=== PATIENT | female | born 1995 | race Caucasian/White ===

== ENCOUNTER 2020-12-01 12:19 | Outpatient (REF) | payer OTHER, SELFPAY ==
[2020-12-01 13:25] LABS: HCG Quantitative 24 mIU/mL
== END 2020-12-01 12:20 | disposition home or self-care (01) ==
LOC: HO.LAB 12:19
PROVIDERS: Visit Provider Advanced Practice Midwife
DX: O20.0 Threatened abortion (principal)
CPT/HCPCS: 36415; 84702

== ENCOUNTER 2020-12-03 10:39 | Outpatient (REF) | payer OTHER, SELFPAY ==
[2020-12-03 12:22] LABS: HCG Quantitative 31 mIU/mL
== END 2020-12-03 10:40 | disposition home or self-care (01) ==
LOC: HO.LAB 10:39
PROVIDERS: Visit Provider Advanced Practice Midwife
DX: O20.0 Threatened abortion (principal)
CPT/HCPCS: 36415; 84702

== ENCOUNTER 2020-12-05 10:19 | Outpatient (REF) | payer OTHER, SELFPAY ==
[2020-12-05 11:23] LABS: HCG Quantitative 26 mIU/mL
== END 2020-12-05 10:20 | disposition home or self-care (01) ==
LOC: HO.LAB 10:19
PROVIDERS: PCP Internal Medicine; Visit Provider Advanced Practice Midwife
DX: O20.0 Threatened abortion (principal)
CPT/HCPCS: 36415; 84702

== ENCOUNTER 2020-12-15 10:38 | Outpatient (REF) | payer OTHER, SELFPAY ==
[2020-12-15 12:19] LABS: HCG Quantitative 10 mIU/mL
== END 2020-12-15 10:39 | disposition home or self-care (01) ==
LOC: HO.LAB 10:38
PROVIDERS: PCP Internal Medicine; Visit Provider Advanced Practice Midwife
DX: O20.0 Threatened abortion (principal); Z3A.00 Weeks of gestation of pregnancy not specified
CPT/HCPCS: 36415; 84702

== ENCOUNTER 2020-12-25 12:23 | Outpatient (REF) | payer OTHER, SELFPAY ==
[2020-12-25 13:34] LABS: HCG Quantitative < 2 mIU/mL
== END 2020-12-25 12:24 | disposition home or self-care (01) ==
LOC: HO.LAB 12:23
PROVIDERS: PCP Internal Medicine; Visit Provider Advanced Practice Midwife
DX: O02.1 Missed abortion (principal)
CPT/HCPCS: 36415; 84702

== ENCOUNTER → 2021-01-09 08:39 | Outpatient (BNVA) | payer OTHER, SELFPAY | PROVIDERS: PCP Internal Medicine; Visit Provider Advanced Practice Midwife ==

== ENCOUNTER 2021-02-03 10:22 | Outpatient (REF) | payer OTHER, SELFPAY ==
[2021-02-03 12:41] LABS: HCG Quantitative 1112 mIU/mL
== END 2021-02-03 10:23 | disposition home or self-care (01) ==
LOC: HO.LAB 10:22
PROVIDERS: PCP Internal Medicine; Visit Provider Obstetrics & Gynecology
DX: O99.519 Diseases of the respiratory system complicating pregnancy, unspecified trimester (principal); J45.909 Unspecified asthma, uncomplicated
CPT/HCPCS: 36415; 81025; 84702; 99212

== ENCOUNTER 2021-02-05 10:33 | Outpatient (REF) | payer OTHER, SELFPAY ==
[2021-02-05 11:54] LABS: HCG Quantitative 2481 mIU/mL; Thyroid Stimulating Hormone 0.23 uIU/mL (0.32-4.0)
== END 2021-02-05 10:34 | disposition home or self-care (01) ==
LOC: HO.LAB 10:33
PROVIDERS: PCP Internal Medicine; Visit Provider Obstetrics & Gynecology
DX: O26.899 Other specified pregnancy related conditions, unspecified trimester (principal); E05.00 Thyrotoxicosis with diffuse goiter without thyrotoxic crisis or storm
CPT/HCPCS: 36415; 84443; 84702; 99212

== ENCOUNTER 2021-02-06 09:57 | Outpatient (REF) | payer OTHER, SELFPAY ==
--- NOTE | ~2021-02-06 | US_ITS ---
EXAMINATION: OBSTETRICAL ULTRASOUND, FIRST TRIMESTER HISTORY: 25-year-old with the unknown LMP History of missed AB 2 months earlier LMP: N/A COMPARISON: 08/23/2019 TECHNIQUE: Real time transabdominal imaging with color and M-mode Doppler. Transvaginal ultrasound was performed using an endovaginal probe. FINDINGS: An intrauterine gestational sac with a mean sac diameter of 7.5 mm consistent with 5 weeks and 3 days is noted. No embryonic pole or yoke sac are seen. This can be consistent with the given gestational age. Both maternal ovaries are seen and appear normal. No free fluid in the cul-de-sac. GESTATIONAL AGE: 1. GA from LMP: N/A wks 2. GA from AUA: 5.3 wks ESTIMATED DATE OF DELIVERY: 1. AARON from LMP: N/A 2. AARON from AUA: 09/20/2021 US/US OB <= 14 weeks fetus IMPRESSION: 1. A single intrauterine gestational sac with mean sac diameter consistent with 5 weeks 3 days. 2. No visible yolk sac or embryonic pole. 3. Normal ovaries Today's finding can be consistent with early . However blighted ovum or missed AB cannot be ruled out. Clinical correlation suggested. Thank you very much for this referral. This note was generated with a voice recognition program. Please excuse any errors which may have been overlooked during my review of this note. Sometimes these errors may affect the content or meaning of a given sentence.
--- NOTE | ~2021-02-06 | US_ITS ---
EXAMINATION: OBSTETRICAL ULTRASOUND, FIRST TRIMESTER HISTORY: 25-year-old with the unknown LMP History of missed AB 2 months earlier LMP: N/A COMPARISON: 08/23/2019 TECHNIQUE: Real time transabdominal imaging with color and M-mode Doppler. Transvaginal ultrasound was performed using an endovaginal probe. FINDINGS: An intrauterine gestational sac with a mean sac diameter of 7.5 mm consistent with 5 weeks and 3 days is noted. No embryonic pole or yoke sac are seen. This can be consistent with the given gestational age. Both maternal ovaries are seen and appear normal. No free fluid in the cul-de-sac. GESTATIONAL AGE: 1. GA from LMP: N/A wks 2. GA from AUA: 5.3 wks ESTIMATED DATE OF DELIVERY: 1. AARON from LMP: N/A 2. AARON from AUA: 09/20/2021 US/US OB transvaginal IMPRESSION: 1. A single intrauterine gestational sac with mean sac diameter consistent with 5 weeks 3 days. 2. No visible yolk sac or embryonic pole. 3. Normal ovaries Today's finding can be consistent with early . However blighted ovum or missed AB cannot be ruled out. Clinical correlation suggested. Thank you very much for this referral. This note was generated with a voice recognition program. Please excuse any errors which may have been overlooked during my review of this note. Sometimes these errors may affect the content or meaning of a given sentence.
[2021-02-06 12:36] LABS: Free T4 (Free Thyroxine) 0.89 ng/dL (0.71-1.85)
[2021-02-07 07:52] LABS: Triiodothyronine T3 Free 3.2 pg/mL (2.3-4.2)
== END 2021-02-06 09:58 | disposition home or self-care (01) ==
LOC: HO.US 09:57
PROVIDERS: PCP Internal Medicine; Visit Provider Obstetrics & Gynecology
DX: O26.891 Other specified pregnancy related conditions, first trimester (principal); E05.00 Thyrotoxicosis with diffuse goiter without thyrotoxic crisis or storm
CPT/HCPCS: 36415; 76801; 76817; 84439; 84481

== ENCOUNTER 2021-02-23 09:38 | Outpatient (REF) | payer OTHER, SELFPAY ==
--- NOTE | ~2021-02-23 | US_ITS ---
EXAMINATION: US OBSTETRICAL ULTRASOUND CLINICAL INFORMATION: First trimester dating COMPARISON: Previous exam 02/06/2021. LMP: Not available. Gestational age by maternal dates is . Estimated date of delivery by maternal dates is . TECHNIQUE: Transabdominal first trimester OB ultrasound FINDINGS: There is a single intrauterine gestational sac with visible yolk sac, embryo/fetus, and cardiac activity. There is no significant subchorionic hemorrhage or hematoma. HR: 150 beats per minute. CRL (crown rump length): 1.1 cm (7 weeks 2 days +/- 4 days). AARON (estimated date of delivery): 10/10/2021 +/- 4 days. MATERNAL ADNEXA: The right maternal ovary measures 2.7 x 1.9 x 1.8 cm. The left maternal ovary measures 3.2 x 2.8 x 2.9 cm. There is no significant maternal adnexal mass. No maternal pelvic ascites. US/US OB <= 14 weeks fetus IMPRESSION: 1. Single intrauterine gestation with ultrasound gestational age of 7 weeks 2 days +/- 4 days. 2. Estimated date of delivery is 10/10/2021 +/- 4 days. 3. No maternal adnexal mass or pelvic ascites.
== END 2021-02-23 09:39 | disposition home or self-care (01) ==
LOC: HO.US 09:38
PROVIDERS: PCP Internal Medicine; Visit Provider Obstetrics & Gynecology
DX: Z34.90 Encounter for supervision of normal pregnancy, unspecified, unspecified trimester (principal)
CPT/HCPCS: 76801

== ENCOUNTER → 2021-02-26 11:05 | Outpatient (BNVA) | payer OTHER, SELFPAY | PROVIDERS: PCP Internal Medicine; Visit Provider Obstetrics & Gynecology ==

== ENCOUNTER → 2021-03-04 10:07 | Outpatient (BNVA) | payer OTHER, SELFPAY | PROVIDERS: PCP Internal Medicine; Visit Provider Advanced Practice Midwife | DX: Z13.89 Encounter for screening for other disorder (principal) | CPT/HCPCS: 99212 ==

== ENCOUNTER 2021-03-16 13:39 | Outpatient (REF) | payer OTHER, SELFPAY ==
[2021-03-17 05:48] LABS: CT PCR NOT DETECTED (Not Detect.); NG PCR NOT DETECTED (Not Detect.)
[2021-03-17 10:47] LABS: BV Int Neg Control Negative (Negative); BV Int Pos Control Positive (Positive)
== END 2021-03-16 13:40 | disposition home or self-care (01) ==
LOC: HO.LAB 13:39
PROVIDERS: PCP Internal Medicine; Visit Provider Obstetrics & Gynecology
DX: O26.891 Other specified pregnancy related conditions, first trimester (principal); N64.4 Mastodynia; Z3A.10 10 weeks gestation of pregnancy; Z87.59 Personal history of other complications of pregnancy, childbirth and the puerperium
CPT/HCPCS: 87480; 87491; 87510; 87591; 87660; 99212

== ENCOUNTER 2021-03-20 10:40 | Outpatient (REF) | payer OTHER, SELFPAY ==
--- NOTE | ~2021-03-20 | US_ITS ---
EXAMINATION: OBSTETRICAL ULTRASOUND, FIRST TRIMESTER HISTORY: 25-year-old at 10.6 weeks of gestation NT screening COMPARISON: 02/23/2021 TECHNIQUE: Real time transabdominal imaging with color and M-mode Doppler. FINDINGS: A single, live IUP CRL of 46.6 mm c/w 11.4wks is noted. Heart Rate: 158 beats per minute. Normal yolk sac seen. NT was 1.02.mm. NB Present The embryo appears sonographically wnl for this GA. Both maternal ovaries are seen and appear normal. GESTATIONAL AGE: 1. Established GA: 10.6 wks 2. GA from AUA: 11.4 wks ESTIMATED DATE OF DELIVERY: 1. Established AARON: 10/10/2021 2. AARON from A: 10/05/2021 US/US OB 1T nuc measure IMPRESSION: 1. A single live IUP 2. Size equals dates 3. NT of 1.02 mm MFM Consultation: I reviewed the ultrasound findings along with significance of NT measurement. The NT of less than 3mm is generally reassuring. However, the sensitivity for T21 detection is only 60%. I reviewed the availability of serum aneuploidy screening which includes cell-free DNA and placental protein based tests. I discussed the sensitivity, false-positive rate, and other limitations associated with each test. I also reviewed the availability of invasive diagnostic tests that are associated small but definite risk of miscarriage. We also reviewed the differences between screening tests and diagnostic tests. After our discussion, she opted for the First trimester screening that is based on cell-free DNA or non-invasive testing (NIPT). Patient reports a history of Graves' disease which was diagnosed after her last delivery. According to the patient, she was given an iodine health and then placed on methimazole. The thyroid functions normalized and subsequently stopped the methimazole. She is unsure if she was tested for thyroid-stimulating receptor antibodies (TSRAbs). I advised her to remind her scow captain about the antibody as it can have cause thyroid storm in fetuses and neonates. She denies having had thyroid ablation. I also informed her that the use of methimazole during is acceptable as long as there is a maternal indication. A follow up at 18 weeks for survey has been scheduled. Thank you very much for this referral. Total time 30 minutes. The time spent was devoted to counseling the patient about the disease and diagnosis, coordinating care including reviewing her records, pertinent lab data and studies, as well as discussing diagnostic evaluation and workup, plan therapeutic interventions and future disposition of care. This includes any additional research needed to obtain further information in formulating the plan of care of this patient. This note was generated with a voice recognition program. Please excuse any errors which may have been overlooked during my review of this note. Sometimes these errors may affect the content or meaning of a given sentence.
[2021-03-20 12:31] LABS: MANUAL DIFF FLAG NO
[2021-03-20 12:44] LABS: Basophils Percent Auto 0.2 % (0-2); Eosinophils Absolute Auto 0.1 X10*3/uL (0.0-0.4); Eosinophils Percent Auto 0.9 % (0-4); Hematocrit 37.4 % (37-47); Hemoglobin 12.4 g/dl (12.0-16.0); Imm Gran Abs Auto 0.06 X10*3/uL (0.00-0.03); Imm Gran Pct Auto 0.6 % (0.0-0.4); Lymphocytes Absolute Auto 2.3 X10*3/uL (1.2-4.9); Lymphocytes Percent Auto 21.1 % (20-40); Mean Corpuscular HGB Conc 33.2 g/dl (31.0-35.0); Mean Corpuscular Hemoglobin 30.6 pg (27.0-33.0); Mean Corpuscular Volume 92.3 fL (80-98); Monocytes Absolute Auto 0.6 X10*3/uL (0.1-1.2); Monocytes Percent Auto 5.6 % (2-11); Neutrophils Absolute Auto 7.8 X10*3/uL (2.0-8.3); Neutrophils Percent Auto 71.6 % (45-73); Platelet Count 258 X10*3/uL (160-400); Red Blood Count 4.05 X10*6/uL (4.20-5.50); Red Cell Distribution Width 12.3 % (11.0-16.0); White Blood Count 10.9 X10*3/uL (4.8-10.8)
[2021-03-20 13:19] LABS: Syphilis Screen Nonreactive (Nonreactive)
[2021-03-20 13:32] LABS: Amphetamine Screen Urine Not Detected (Not Detect); Barbiturates, Urine Not Detected (Not Detect); Benzodiazepines Screen Urine Not Detected (Not Detect); Cannabinoid Screen Urine POSITIVE (Not Detect); Cocaine Screen Urine Not Detected (Not Detect); Opiate Screen Urine Not Detected (Not Detect); Phencyclidine Screen Urine Not Detected (Not Detect)
[2021-03-21 13:36] LABS: Rubella IgG Antibody 3.43 Index
[2021-03-23 08:31] LABS: ~HepC Num1 0.08 S/CO (0.00-0.79); ~Hepatitis C Antibody Nonreactive (Nonreactive)
[2021-03-23 08:43] LABS: HBsAGNum1 0.19 S/CO (0.00-0.99); HIV AB/AG Nonreactive (Nonreactive); HIV Num 1 0.05 S/CO (0.00-0.99); Hepatitis B Surface Antigen Negative (Negative)
== END 2021-03-20 10:41 | disposition home or self-care (01) ==
LOC: HO.US 10:40
PROVIDERS: Absent Provider Obstetrics & Gynecology; PCP Internal Medicine; Visit Provider Obstetrics & Gynecology
DX: Z36.82 Encounter for antenatal screening for nuchal translucency (principal); O36.8310 Maternal care for abnormalities of the fetal heart rate or rhythm, first trimester, not applicable or unspecified; O99.281 Endocrine, nutritional and metabolic diseases complicating pregnancy, first trimester; E05.00 Thyrotoxicosis with diffuse goiter without thyrotoxic crisis or storm; O99.511 Diseases of the respiratory system complicating pregnancy, first trimester; J45.909 Unspecified asthma, uncomplicated; Z3A.10 10 weeks gestation of pregnancy
CPT/HCPCS: 76813; 80307; 85025; 86762; 86780; 86787; 86803; 86850; 86900; 86901; 87086; 87340; 87389

== ENCOUNTER 2021-03-27 14:49 | Outpatient (REF) | payer OTHER, SELFPAY ==
[2021-03-27 17:48] LABS: Glucose 1 Hour PP 50gm Dose 82 mg/dL (60-140)
== END 2021-03-27 14:50 | disposition home or self-care (01) ==
LOC: HO.LAB 14:49
PROVIDERS: Absent Provider Obstetrics & Gynecology; PCP Internal Medicine; Visit Provider Obstetrics & Gynecology
DX: Z34.90 Encounter for supervision of normal pregnancy, unspecified, unspecified trimester (principal); Z36.82 Encounter for antenatal screening for nuchal translucency
CPT/HCPCS: 36415

== ENCOUNTER → 2021-04-20 10:38 | Outpatient (BNVA) | payer OTHER, SELFPAY | PROVIDERS: PCP Internal Medicine; Visit Provider Obstetrics & Gynecology | DX: Z34.82 Encounter for supervision of other normal pregnancy, second trimester (principal) | CPT/HCPCS: 99212 ==

== ENCOUNTER 2021-05-15 11:12 | Outpatient (REF) | payer OTHER, SELFPAY ==
--- NOTE | ~2021-05-15 | US_ITS ---
EXAMINATION: US OBSTETRICAL CLINICAL INFORMATION: 26-year-old at 18.6 weeks of gestation Screening for anomaly COMPARISON: 03/20/2021 TECHNIQUE: Real-time transabdominal ultrasound was performed using C1-5 megahertz transducer. FINDINGS: A single, active, fetus is seen in transverse presentation. The placenta is anterior without previa, and the amniotic fluid volume is wnl. MEASUREMENTS: 1. Biparietal Diameter: 4.6 cm; 20.0 wks 2. Occipital Frontal Diameter: 5.8 cm 3. Head Circumference: 16.9 cm; 19.4 wks 4. Abdominal Circumference: 14.6 cm; 20.0 wks 5. Femur Length: 3.1 cm; 19.5 wks 6. Humerus Length: 3.1 cm; 20.2 wks 7. Tibia Length: 2.6 cm; 19.2 wks 8. Ulna Length: 2.5 cm; 19.1 wks 9. Lateral ventricle: 0.62 cm 10. Cerebellum: 1.92 cm; 19.6 wks 11. Cisterna Magna: 0.51 cm 12. Nuchal Fold: 3.2 mm 13. Heart Rate: 135 beats per minute Rt ovary: normal Lt ovary: normal Cervical length 4.3 cm on T/A. GESTATIONAL AGE: 1. Established GA: 18.6 wks 2. GA from [facility]: 19.6 wks ESTIMATED DATE OF DELIVERY: 1. Established AARON: 10/10/2021 2. AARON from [facility]: 10/03/2021 ANATOMY: The visualized anatomy includes but not limited to: 1. Cranium: Normal 2. Intracranial anatomy: cavum septum pellucidi, lateral ventricles, choroid plexus, cerebellum, posterior fossa, third and fourth ventricles. 3. face: orbits, lip/palate, profile, nasal bone 4. Heart: four-chamber view of the heart, ventricular septum, foramen ovale, pulmonary vein, left and right outflow tracts, three-vessel view, 3 vessel trachea view, aortic and ductal arches, situs.. 5. Diaphragm: Normal 6. Abdominal wall: Normal 7. Cord Insertion: Normal 8. Spine: Cervical, thoracic, lumbar, sacral. 9. Stomach: Normal size and shape 10. Right Kidney: Normal 11. Left Kidney: Normal 12. 3 vessel cord: Normal 13. Upper extremity: Open hands, fifth digit. 14. Lower extremity: Tibia, fibula, bilateral feet. 15. Bladder: Normal 16. Genitalia: Female, patient aware US/US OB /maternal detail IMPRESSION: 1. Single, living, intrauterine with appropriate biometry. 2. Normal survey DISCUSSION: I reviewed today's ultrasound findings. We discussed the limitations of ultrasound in diagnosing aneuploidy and other congenital abnormalities. I reviewed the differences between screening test and diagnostic test. Amniocentesis was discussed and declined. She was informed that the baseline incidence of congenital abnormalities is approximately 3-5%. Not all these conditions are diagnosable in utero. RECOMMENDATIONS: 1. Follow-up as clinically indicated. Thank you for allowing me to participate in her care. Total time 30 minutes. The time spent was devoted to counseling the patient about the disease and diagnosis, coordinating care including reviewing her records, pertinent lab data and studies, as well as discussing diagnostic evaluation and workup, plan therapeutic interventions and future disposition of care. This includes any additional research needed to obtain further information in formulating the plan of care of this patient. This note was generated with a voice recognition program. Please excuse any errors which may have been overlooked during my review of this note. Sometimes these errors may affect the content or meaning of a given sentence.
== END 2021-05-15 11:13 | disposition home or self-care (01) ==
LOC: HO.US 11:12
PROVIDERS: Visit Provider Obstetrics & Gynecology
DX: Z34.92 Encounter for supervision of normal pregnancy, unspecified, second trimester (principal); Z36.3 Encounter for antenatal screening for malformations
CPT/HCPCS: 76811

== ENCOUNTER → 2021-05-18 09:28 | Outpatient (BNVA) | payer OTHER, SELFPAY | PROVIDERS: Visit Provider Advanced Practice Midwife | DX: O34.219 Maternal care for unspecified type scar from previous cesarean delivery (principal); Z3A.19 19 weeks gestation of pregnancy | CPT/HCPCS: 81003; 99212 ==

== ENCOUNTER → 2021-06-15 10:34 | Outpatient (BNVA) | payer BC, SELFPAY | PROVIDERS: Visit Provider Obstetrics & Gynecology | DX: O34.219 Maternal care for unspecified type scar from previous cesarean delivery (principal); Z3A.23 23 weeks gestation of pregnancy | CPT/HCPCS: 99212 ==

== ENCOUNTER → 2021-07-13 10:36 | Outpatient (BNVA) | payer BC, SELFPAY | PROVIDERS: Visit Provider Advanced Practice Midwife | DX: O34.219 Maternal care for unspecified type scar from previous cesarean delivery (principal); O99.282 Endocrine, nutritional and metabolic diseases complicating pregnancy, second trimester; E05.00 Thyrotoxicosis with diffuse goiter without thyrotoxic crisis or storm; Z3A.27 27 weeks gestation of pregnancy | CPT/HCPCS: 99212 ==

== ENCOUNTER 2021-08-05 10:05 | Outpatient (REF) | payer BC, SELFPAY ==
[2021-08-05 13:08] LABS: Hemoglobin 10.9 g/dl (12.0-16.0); Mean Corpuscular Hemoglobin 30.4 pg (27.0-33.0); Mean Corpuscular Volume 92.2 fL (80-98); Mean Platelet Volume 9.8 fL (9.4-12.3); Platelet Count 262 X10*3/uL (160-400); Red Blood Count 3.58 X10*6/uL (4.20-5.50); Red Cell Distribution Width 13.2 % (11.0-16.0); White Blood Count 14.9 X10*3/uL (4.8-10.8)
[2021-08-05 13:21] LABS: Glucose 1 Hour PP 50gm Dose 122 mg/dL (60-140)
[2021-08-05 13:47] LABS: Syphilis Screen Nonreactive (Nonreactive)
[2021-08-05 13:48] LABS: TSH reflex Free T4 (Prenatal) 0.93 uIU/mL (0.32-4.0); Thyroid Stimulating Hormone 0.93 uIU/mL (0.32-4.0)
== END 2021-08-05 10:06 | disposition home or self-care (01) ==
LOC: HO.LAB 10:05
PROVIDERS: PCP Internal Medicine; Visit Provider Advanced Practice Midwife
DX: O34.219 Maternal care for unspecified type scar from previous cesarean delivery (principal); O09.213 Supervision of pregnancy with history of pre-term labor, third trimester; O99.283 Endocrine, nutritional and metabolic diseases complicating pregnancy, third trimester; E05.00 Thyrotoxicosis with diffuse goiter without thyrotoxic crisis or storm; Z3A.30 30 weeks gestation of pregnancy; Z23 Encounter for immunization
CPT/HCPCS: 36415; 81003; 84443; 85027; 86780; 90471; 90715; 99212

== ENCOUNTER → 2021-08-19 13:20 | Outpatient (BNVA) | payer BC, SELFPAY | PROVIDERS: PCP Internal Medicine; Visit Provider Advanced Practice Midwife | DX: Z34.83 Encounter for supervision of other normal pregnancy, third trimester (principal); Z3A.32 32 weeks gestation of pregnancy | CPT/HCPCS: 99212 ==

== ENCOUNTER 2021-08-28 13:12 | Outpatient (REF) | payer BC, SELFPAY ==
--- NOTE | ~2021-08-28 | US_ITS ---
EXAMINATION: OBSTETRICAL ULTRASOUND, Follow up HISTORY: 26-year-old at the 33.6 weeks of gestation Size greater than dates COMPARISON: 05/15/2021 TECHNIQUE: Real time transabdominal imaging with color and M-mode Doppler. PRESENTATION: Vertex PLACENTA LOCATION: Anterior without previa AMNIOTIC FLUID: GREG 13.2 MEASUREMENTS: 1. Biparietal Diameter: 9.2 cm; 17.3 wks 2. Head Circumference: 32.4 cm; 36.5 wks 3. Abdominal Circumference: 31.5 cm; 35.3 wks 4. Femur Length: 6.91 cm; 35.4 wks 5. Heart Rate: 150 beats per minute WEIGHT: EFW: 2762 grams (6 lbs 1 oz) -- 92 %. BIOPHYSICAL PROFILE: Motion: 2 Tone: 2 Breathin Amniotic Fluid: 2 Total score: 8/8 GESTATIONAL AGE: 1. Established GA: 33.6 wks 2. GA from AUA: 36.2 wks ESTIMATED DATE OF DELIVERY: 1. Established AARON: 10/10/2021 2. AARON from AUA: 09/23/2021 US/US OB follow up IMPRESSION: 1. A single active fetus is in vertex presentation 2. Size greater than dates, EFW corresponds to 92nd percentile 3. Reassuring biophysical profile I reviewed today's ultrasound findings and the limitations of ultrasound and estimating weights. Even though the EFW corresponds to 92nd percentile, this does not the predict macrosomia at term. Unless the EFW is greater than 5000 g, a section to prevent shoulder dystocia is not recommended. She had a normal 1 hour GLT. She had a delivery of her first the child, but would like to discuss a trial of labor. I informed her that induction of labor with an uterine scar is not recommended. However if she starts spontaneous labor near-term and depending on the type of the uterine incision that was made, a trial of labor can be attempted. However the final decision should depend on the estimated weight in approximately 3-4 weeks. A follow-up in 3 weeks is been scheduled. Thank you very much for this referral. Total time 30 minutes. The time spent was devoted to counseling the patient about the disease and diagnosis, coordinating care including reviewing her records, pertinent lab data and studies, as well as discussing diagnostic evaluation and workup, plan therapeutic interventions and future disposition of care. This includes any additional research needed to obtain further information in formulating the plan of care of this patient. This note was generated with a voice recognition program. Please excuse any errors which may have been overlooked during my review of this note. Sometimes these errors may affect the content or meaning of a given sentence.
== END 2021-08-28 13:13 | disposition home or self-care (01) ==
LOC: HO.US 13:12
PROVIDERS: PCP Internal Medicine; Visit Provider Advanced Practice Midwife
DX: O26.843 Uterine size-date discrepancy, third trimester (principal); O99.213 Obesity complicating pregnancy, third trimester
CPT/HCPCS: 76816

== ENCOUNTER → 2021-09-08 11:07 | Outpatient (BNVA) | payer BC, SELFPAY | PROVIDERS: Visit Provider Obstetrics & Gynecology | DX: Z34.83 Encounter for supervision of other normal pregnancy, third trimester (principal); Z3A.35 35 weeks gestation of pregnancy | CPT/HCPCS: 99212 ==

== ENCOUNTER 2021-09-18 12:17 | Outpatient (REF) | payer BC, SELFPAY ==
[2021-09-20 17:42] LABS: CT PCR NOT DETECTED (Not Detect.); NG PCR NOT DETECTED (Not Detect.)
== END 2021-09-18 12:18 | disposition home or self-care (01) ==
LOC: HO.LAB 12:17
PROVIDERS: Visit Provider Advanced Practice Midwife
DX: Z01.419 Encounter for gynecological examination (general) (routine) without abnormal findings (principal); O26.849 Uterine size-date discrepancy, unspecified trimester
CPT/HCPCS: 87081; 87147; 87491; 87591

== ENCOUNTER 2021-09-18 14:34 | Outpatient (REF) | payer BC, SELFPAY ==
--- NOTE | ~2021-09-18 | US_ITS ---
EXAMINATION: OBSTETRICAL ULTRASOUND, Follow up HISTORY: 26-year-old at the 36.6 weeks of gestation Size date discrepancy COMPARISON: 08/28/2021 TECHNIQUE: Real time transabdominal imaging with color and M-mode Doppler. PRESENTATION: Vertex PLACENTA LOCATION: Anterior without previa AMNIOTIC FLUID: GERG 21.6 cm MEASUREMENTS: 1. Biparietal Diameter: 9.9 cm; 40.4 wks 2. Head Circumference: 36.1 cm; N/A wks 3. Abdominal Circumference: 35.5 cm; 39.3 wks 4. Femur Length: 7.7 cm; 39.3 wks 5. Heart Rate: 163 beats per minute WEIGHT: EFW: 3917 grams (8 lbs 10 oz) -- 98 %. The four-chamber view of the heart showed ventricular asymmetry. The right ventricle and outflow tract are larger than the left ventricle and outflow tract. While this may be a normal variant and due to position, it raises the suspicion for coarctation of aorta. The isthmic portion of the aorta could not be visualized due to position. BIOPHYSICAL PROFILE: Motion: 2 Tone: 2 Breathin Amniotic Fluid: 2 Total score: 8/8 GESTATIONAL AGE: 1. Established GA: 36.6 wks 2. GA from AUA: 39.6 wks ESTIMATED DATE OF DELIVERY: 1. Established AARON: 10/10/2021 2. [facility] 09/19/[facility]21 US/US OB follow up IMPRESSION: 1. A single active fetus is in vertex presentation 2. Size greater than dates, EFW corresponds to 98th percentile. 3. Cardiac ventricular asymmetry. The left ventricle and outflow tracts are smaller than the right suggestive of coarctation of aorta. I reviewed today's findings and discussed the limitations of ultrasound and estimating weight. In addition although the EFW corresponds to 98th percentile, this does not predict macrosomia at term which is defined as 4500 g. The four-chamber view of the heart raises the suspicion for coarctation of the aorta which is normally diagnosed after delivery. However, I recommended a referral to the [facility] pediatric cardiology for echocardiography. Thank you very much for this referral. Total time 30 minutes. The time spent was devoted to counseling the patient about the disease and diagnosis, coordinating care including reviewing her records, pertinent lab data and studies, as well as discussing diagnostic evaluation and workup, plan therapeutic interventions and future disposition of care. This includes any additional research needed to obtain further information in formulating the plan of care of this patient. This note was generated with a voice recognition program. Please excuse any errors which may have been overlooked during my review of this note. Sometimes these errors may affect the content or meaning of a given sentence.
== END 2021-09-18 14:35 | disposition home or self-care (01) ==
LOC: HO.US 14:34
PROVIDERS: Visit Provider Advanced Practice Midwife
DX: O26.849 Uterine size-date discrepancy, unspecified trimester (principal); O34.219 Maternal care for unspecified type scar from previous cesarean delivery; Z3A.36 36 weeks gestation of pregnancy
CPT/HCPCS: 76816; 99212

== ENCOUNTER → 2021-09-23 08:55 | Outpatient (BNVA) | payer BC, SELFPAY | PROVIDERS: Visit Provider Obstetrics & Gynecology | DX: O34.219 Maternal care for unspecified type scar from previous cesarean delivery (principal); Z3A.37 37 weeks gestation of pregnancy | CPT/HCPCS: 99212 ==

== ENCOUNTER → 2021-10-14 11:59 | Outpatient (BNVA) | payer BC, SELFPAY | PROVIDERS: Visit Provider Obstetrics & Gynecology ==